=== PATIENT | female | born 2000 | race Caucasian/White ===

== ENCOUNTER 2024-04-29 10:33 | Emergency (ER) | payer OTHER, SELFPAY ==
[2024-04-29 10:35] VITALS: BP 159/101; PULSE 130; RESP 18; TEMP 36.3; O2SAT 99; BMI 21.9
[2024-04-29 11:02] LABS: Basophils # 0.1 K/mm3 (0-0.2); Basophils % 1.9 % (0.1-2.0); Eosinophils # 0.1 K/mm3 (0.0-0.4); Eosinophils % 0.9 % (0.1-12.0); Hematocrit 44.8 % (37.0-47.0); Hemoglobin 14.1 g/dL (12.2-16.2); Lymphocytes % 25.4 % (10-50); Mean Corpuscular HGB Conc 31.5 g/dL (31.8-35.4); Mean Corpuscular Hemoglobin 27.7 pg (27.0-31.2); Mean Corpuscular Volume 87.9 fl (81-99); Mean Platelet Volume 7.8 fl (7.4-10.4); Monocytes # 0.5 K/mm3 (0.1-1.0); Neutrophils % 64.8 % (37.0-80.0); Platelet Count 440 K/mm3 (142-424); Red Cell Distribution Width 14.8 % (11.5-17.5); White Blood Count 7.7 K/mm3 (4.8-10.8)
[2024-04-29 11:03] LABS: Chloride 109 mmol/L (98-107)
[2024-04-29 11:04] LABS: Albumin Level 4.9 g/dl (3.5-5.0); Potassium 3.6 mmoL/L (3.5-5.1); Sodium 140 mmol/L (136-145)
[2024-04-29 11:06] LABS: Blood Urea Nitrogen 6 mg/dl (7-17); Creatinine Clearance Estimated 122 mL/min (50-200); Estimated Glomerular Filt Rate 121 ml/min (>60); GFR (African American) 146 ML/MIN (>60)
[2024-04-29 11:06] LABS: Urine Pregnancy, HCG Qual. Positive (Negative)
[2024-04-29 11:07] LABS: Alanine Aminotransferase 18 U/L (12-78); Albumin/Globulin Ratio 1.5 (1.1-1.8); Alkaline Phosphatase 58 U/L (38-126); Anion Gap 9.6 mEq/L (5-15); Aspartate Amino Transferase 32 U/L (14-36); Bilirubin,Total 0.6 mg/dl (0.2-1.3); Calcium 9.5 mg/dl (8.4-10.2); Carbon Dioxide 25 mmol/L (22.0-30.0); Globulin 3.2 g/dL (1.3-3.2); Glucose 99 mg/dl (74-100); Total Protein,Serum 8.1 g/dl (6.3-8.2)
--- NOTE | 2024-04-29 11:09 | US_ITS ---
PROCEDURE INFORMATION: Exam: US , Transvaginal Exam date and time: 04/29/2024 11:11 AM Age: 24 years old Clinical indication: complicated by abdominal or pelvic pain; Right lower quadrant; First trimester (<14 weeks 0 days); Gestational age or lmp: 03/17/24; ; Additional info: Rlq pain LABS AND CLINICAL REPORTS: Last menstrual period start date: 03/17/2024 Gestational age (Established): 6 w 1 d Estimated due date (Established): 12/22/2024 TECHNIQUE: Imaging protocol: Real-time transvaginal obstetrical ultrasound of the maternal pelvis with image documentation. Transvaginal imaging was used for better evaluation of the fetus, adnexa, and/or cervix. COMPARISON: No relevant prior studies available. FINDINGS: Gestation: No intrauterine gestation. MATERNAL: Uterus: Uterus measures 8.81 cm x 5.84 cm x 3.89 cm. Normal appearance of the uterus. The endometrial echo complex measures up to 0.7 cm. Right ovary/adnexa: Right ovary measures 3.74 cm x 2.28 cm x 1.92 cm. Right ovarian volume is 8.57 mL. A rounded structure is noted along the inferior aspect of the right ovary measuring up to 1.3 cm. Left ovary/adnexa: Left ovary measures 3.81 cm x 2.31 cm x 2.03 cm. Left ovarian volume is 9.35 mL. Probable small collapsed cyst in the left ovary measuring up to 1.7 cm. Intraperitoneal space: Small volume free fluid in the pelvis. IMPRESSION: 1. No gestational sac is identified. 2. A rounded structure is noted along the inferior aspect of the right ovary measuring up to 1.3 cm. It is unclear whether this is arising from the ovary or adjacent to the ovary. This does not have the typical appearance of an ectopic . This also does not have the typical appearance of the appendix, though these entities are not entirely excluded. Recommend attention on follow-up imaging.
[2024-04-29 11:39] LABS: HCG,Quantitative 110 mIU/ml (0-5.42)
[2024-04-29 11:40] VITALS: BP 149/89; PULSE 108; O2SAT 99
[2024-04-29 12:00] VITALS: BP 138/89; PULSE 105; O2SAT 97
--- NOTE | 2024-04-29 12:05 | ED_ITS ---
Discharge Plan Disposition Patient Disposition: Home, Self-Care Condition: Good Referrals Follow up/Referrals: Lashell Carolina DO [Staff Physician] - See instructions Letha Streeter APRN [Primary Care Provider] - See instructions Activity Restrictions/Add. Instructions Additional Instructions/Restrictions: You were evaluated in the ED today. At this time, your hcg level is very low. We do not visualize any on ultrasound, so we recommend close follow up with gynecology for monitoring. I have made an appointment for you with gynecology tomorrow at 11am. Return to the ED for new or worsening symptoms. Clinical Impressions Clinical Impression: Vaginal bleeding during , Lesion of right ovary Stand Alone Forms Stand Alone Forms: Work/School Release Instructions Patient Instructions: DI for Ectopic , DI for Vaginal Bleeding During , DI for Vaginal Bleeding Print Language Print Language: Nicaraguan Discharge ED Provider: Marilee Garg General Adult HPI General Chief complaint: Vaginal Bleeding Stated complaint: 5/6 weeks antepartum, heavy bleeding Time Seen by Provider: 04/29/24 10:44 Mode of Arrival: Ambulatory Source of Information: Patient Limitations: No Limitations Description of Symptoms (Recalled from ER Triage Doc. by RN): c/o spotting t/o the weekend and abdomen cramping, increased red bleeding with lower back pain that started this am. pt 5-6 weeks with 2nd . History of Present Illness HPI narrative: This patient is a 24-year-old female G2, P1 at estimated 5 weeks gestational age presenting to the emergency department for evaluation with concern for vaginal bleeding. She states it initially started out as spotting over the weekend but increased of bright red blood with low back pain and pelvic pain that started this morning. She was having localized right lower quadrant pain at 1 point, but now with mostly pelvic cramping. She has not yet had a confirmatory ultrasound given that it is early. She has had no fevers, urinary symptoms, or other concerns. She notes the bleeding is about the same as a regular period. Related Data Allergies Allergy/AdvReac Type Severity Reaction Status Date / Time No Known Allergies Allergy Verified 04/26/24 16:15 [facility] Disclaimer: The information contained in this section may have been updated after the patient was seen, as this information can be updated by other users. Social History Smoking Status: Never smoker alcohol intake: never current occupational status: employed Travel in the last 8 weeks: None ROS Obtained: Yes All systems reviewed & no additional complaints except as documented Physical Exam General General appearance: alert and in no apparent distress Head Head exam: atraumatic and normocephalic Eye Eye exam: Present normal appearance, PERRL and EOMI ENT ENT exam: Present normal exam, normal oropharynx, mucous membranes moist and normal external ear exam Neck Neck exam: Present normal inspection, full ROM and trachea midline; Absent tenderness Chest Chest inspection: Present normal inspection and symmetric chest wall rise; Absent tenderness Respiratory Respiratory exam: Present normal lung sounds bilaterally; Absent respiratory distress, wheezes, stridor or accessory muscle use Cardiovascular Cardiovascular exam: Present regular rate and normal rhythm Abdominal Exam Abdominal exam: Present soft; Absent distention, tenderness or guarding Extremities Exam Extremities exam: Present normal inspection, full ROM and normal capillary refill; Absent tenderness or edema Back Exam Back exam: Present normal inspection and full ROM; Absent tenderness Neurological Exam Neurological exam: Present alert, oriented X3, CN II-XII intact and normal gait; Absent motor sensory deficit Psychiatric Psychiatric exam: Present normal affect and normal mood Skin Skin exam: Present warm and dry Medical Decision Making Medical Records Medical records reviewed: Yes I reviewed the patient's medical records. Juan Jose Inquiry Pt receiving controlled substance: No Vital Signs: 04/29/24 10:35 04/29/24 11:40 04/29/24 12:00 Temperature 97.4 F L Temperature Source Oral Pulse Rate 108 H 105 H Pulse Rate [Left Radial] 130 H Respiratory Rate 18 Blood Pressure 149/89 H 138/89 Blood Pressure [Right Arm] 159/101 H Blood Pressure Mean 95 98 Blood Pressure Mean [Right Arm] 120 Blood Pressure Source Blood Pressure Source [Right Arm] Automatic Cuff Blood Pressure Position Blood Pressure Position [Right Arm] Sitting 02 Sat by Pulse Oximetry 99 99 97 Oxygen Delivery Method Room Air Room Air Room Air 04/29/24 12:30 04/29/24 13:38 Temperature 97.4 F L Temperature Source Oral Pulse Rate 104 H 104 H Pulse Rate [Left Radial] Respiratory Rate 18 Blood Pressure 129/75 129/75 Blood Pressure [Right Arm] Blood Pressure Mean 88 Blood Pressure Mean [Right Arm] Blood Pressure Source Automatic Cuff Blood Pressure Source [Right Arm] Blood Pressure Position Sitting Blood Pressure Position [Right Arm] 02 Sat by Pulse Oximetry 99 Oxygen Delivery Method Room Air Room Air Lab Data Lab results reviewed: Yes I reviewed the patient's lab results. Lab Results 04/29/24 10:41: WBC 7.7, RBC 5.10, Hgb 14.1, Hct 44.8, MCV 87.9, MCH 27.7, MCHC 31.5 L, RDW 14.8, Plt Count 440 H, MPV 7.8, Neut % (Auto) 64.8, Lymph % (Auto) 25.4, [place] % (Auto) 7.0, Eos % (Auto) 0.9, Baso % (Auto) 1.9, Neut # (Auto) 5.0, Lymph # (Auto) 2.0, [place] # (Auto) 0.5, Eos # (Auto) 0.1, Baso # (Auto) 0.1, Sodium 140, Potassium 3.6, Chloride 109 H, Carbon Dioxide 25, Anion Gap 9.6, BUN 6 L, Creatinine 0.60, Estimated Creat Clear 122, Estimated GFR 121, Est GFR ( Amer) 146, Glucose 99, Calcium 9.5, Total Bilirubin 0.6, AST 32, ALT 18, Alkaline Phosphatase 58, Total Protein 8.1, Albumin 4.9, Globulin 3.2, Albumin/Globulin Ratio 1.5, HCG, Quant 110 H 04/29/24 10:44: Urine Color Yellow, Urine Appearance Clear, Urine pH 6.0, Ur Specific [place] 1.025, Urine Protein Negative, Urine Glucose (UA) Negative, Urine Ketones Negative, Urine Blood 3+ A, Urine Nitrate Negative, Urine Bilirubin Negative, Urine Urobilinogen 0.2, Ur Leukocyte Esterase Negative, Urine RBC 5-10, Urine WBC Occasional, Ur Squamous Epith Cells 3-5, Urine Bacteria Trace, Urine HCG, Qual Positive 04/29/24 10:41 04/29/24 10:41 Orders (Tests/Meds): ORDERS Category Date Time Status Complete Blood Count Auto Diff Stat Lab 04/29/24 10:41 Completed Comprehensive Metabolic Panel Stat Lab 04/29/24 10:41 Completed HCG,Quantitative Stat Lab 04/29/24 10:41 Completed UA [Urinalysis and Microscopic] Stat Lab 04/29/24 10:44 Completed Urine , HCG Qual. Stat Lab 04/29/24 10:44 Completed US OB transvaginal Stat Ultrasound 04/29/24 11:09 Completed Medical Decision Narrative: In summary, this patient is a 24-year-old female presenting to the Emergency Department for evaluation of vaginal bleeding in setting of early . Differential diagnoses considered include but are not limited to threatened , missed , inevitable , ectopic , subchorionic hemorrhage, implantation bleeding. Ruling out the most morbid conditions drove assessment. On exam, the patient is well-appearing with benign abdominal exam. She was hypertensive and tachycardic upon arrival, but she was anxious. Workup included CBC, CMP, quantitative hCG, urinalysis, and type and screen as well as transvaginal ultrasound. I independently interpreted ultrasound prior to the radiologist read and noted no obvious IUP. Please see their read for final interpretation. Labs were obtained that demonstrated hCG of 110. I reviewed patient's medical records from first delivery at [place] and noted her blood type is A positive, indicating RhoGAM is not indicated at this time. She has significant mount of blood in her urine, blood in the vaginal vault with transvaginal ultrasound. Hemoglobin is normal at 14.1 and she has reassuring vital signs with no findings concerning for hemorrhagic shock on exam. Transvaginal ultrasound showed an abnormal nodular lesion of the right ovary but no IUP. They said it was not characteristic of an ectopic . I had an interactive discussion with Dr. Gee with OBGYN who advised she agreed it does not look like ectopic and the patient would benefit from close follow-up tomorrow and gynecology clinic for reassessment, as they can trend hCG is appropriate. Patient agreeable to this. She was given strict return precautions and instructions close follow-up. She was discharged after all questions were answered. Critical Care Critical Care Time Critical Care Time: No
[2024-04-29 12:21] LABS: Microscopic, Urine URINE MICROSCOPIC (MICROSCOPIC)
[2024-04-29 12:26] LABS: Appearance,Urine CLEAR (Clear); Bilirubin,Urine Negative (Negative); Blood, Urine 3+ (Negative); Color,Urine YELLOW (Yellow); Glucose,Urine (UA) Negative (Negative); Ketones,Urine Negative (Negative); Leukocyte Esterase,Urine Negative (Negative); Nitrate,Urine Negative (Negative); Protein,Urine Negative (Negative); Specific Gravity, Urine 1.025 (1.005-1.030); Urobilinogen,Urine 0.2 EU/dl (0.2)
[2024-04-29 12:30] VITALS: BP 129/75; PULSE 104; O2SAT 99
[2024-04-29 12:35] LABS: Bacteria,Urine Trace /lpf; WBC,Urine Occasional #/hpf (0-3)
[2024-04-29 13:38] VITALS: BP 129/75; PULSE 104; RESP 18; TEMP 36.3; O2SAT 99
== END 2024-04-29 13:38 | disposition home or self-care (01) ==
PROVIDERS: Emergency Provider Emergency Medicine; PCP Nurse Practitioner
DX: O20.9 Hemorrhage in early pregnancy, unspecified (principal); N83.9 Noninflammatory disorder of ovary, fallopian tube and broad ligament, unspecified; Z3A.01 Less than 8 weeks gestation of pregnancy
CPT/HCPCS: 76817; 80053; 81001; 81025; 84702; 85025; 99284

== ENCOUNTER 2024-04-30 11:44 | Outpatient (CLI) | payer OTHER, SELFPAY ==
[2024-04-30 13:02] LABS: HCG,Quantitative 133 mIU/ml (0-5.42)
[2024-05-01 08:21] LABS: Progesterone 1.1 ng/mL (.)
== END 2024-04-30 23:59 | disposition home or self-care (01) ==
LOC: LAB 11:45
PROVIDERS: PCP Nurse Practitioner; Visit Provider Obstetrics & Gynecology
DX: Z34.90 Encounter for supervision of normal pregnancy, unspecified, unspecified trimester (principal)
CPT/HCPCS: 36415; 84144; 84702

== ENCOUNTER 2024-05-02 19:08 | Outpatient (CLI) | payer OTHER, SELFPAY ==
[2024-05-02 20:08] LABS: HCG,Quantitative 58 mIU/ml (0-5.42)
== END 2024-05-02 23:59 | disposition home or self-care (01) ==
LOC: LAB.DROPOF 19:11
PROVIDERS: PCP Obstetrics & Gynecology; Visit Provider Obstetrics & Gynecology
DX: O20.9 Hemorrhage in early pregnancy, unspecified (principal)
CPT/HCPCS: 84702

== ENCOUNTER 2024-08-16 10:20 | Emergency (ER) | payer OTHER, SELFPAY ==
[2024-08-16 11:05] VITALS: BP 112/71; PULSE 78; RESP 18; TEMP 36.9; O2SAT 99; BMI 21.5
[2024-08-16 11:19] LABS: UTC Strep Screen (Rapid) Negative (Negative)
--- NOTE | 2024-08-16 11:42 | EXP.UTC ---
Discharge Plan Disposition Patient Disposition: Home, Self-Care Condition: Good Prescriptions Prescriptions: New iyirlzynlwazugb-rfcegeckx-UG [Bromfed DM] 2-30-10 mg/5 mL syrup 10 ml PO Q6H PRN (Reason: cold symptoms) Qty: 200 0RF No Action norelgestromin-ethin.estradiol 150-35 mcg/24 hr patch weekly 1 patch topical MONTHLY Patient Comments: APPLY 1 PATCH EACH WEEK FOR 3 WEEKS, THEN REMOVE FOR 1 WEEK Referrals Follow up/Referrals: Provider,Referral, MD [Primary Care Provider] - See instructions Activity Restrictions/Add. Instructions Additional Instructions/Restrictions: Take medication as prescribed. Increase fluids and rest. If symptoms persist or worsen, return to clinic/PCP. Clinical Impressions Clinical Impression: Upper respiratory tract infection Stand Alone Forms Stand Alone Forms: Work/School Release Instructions Patient Instructions: DI for Viral Upper Respiratory Infection -- Adult Print Language Print Language: Fijian Discharge ED Provider: Ioana Neumann [facility] [place] General Stated complaint: sore throat, cough Mode of Arrival: Ambulatory Source of Information: Patient Limitations: No Limitations Time Seen by Provider: 08/16/24 11:42 Description of Symptoms (Recalled from Triage Doc. 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 She states that she feels as if she has swallowed razor blades. She denies taking anything for her symptoms. Related Data Home Medications ?Medication ?Instructions ?Recorded ?Confirmed norelgestromin 150 mcg-e.estradiol 1 patch topical MONTHLY 08/16/24 08/16/24 35 mcg/24 hr weekly transderm patch Previous Rx's ?Medication ?Instructions ?Recorded ghqyobzojlxsrdc-soxgiftddwhvaxf-BN 10 ml PO Q6H PRN cold symptoms 08/16/24 2 mg-30 mg-10 mg/5 mL oral syrup #200 mL (Bromfed DM) Allergies Allergy/AdvReac Type Severity Reaction Status Date / Time sulfamethoxazole (From Allergy Intermediate Hives Verified 05/02/24 08:30 Bactrim) trimethoprim (From Bactrim) Allergy Intermediate Hives Verified 05/02/24 08:30 Worker's Comp Is this a Worker's Comp case?: No [facility] Disclaimer: The information contained in this section may have been updated after the patient was seen, as this information can be updated by other users. Medical History No significant past medical history Surgical History No significant past surgical history Social History Smoking Status: Never smoker alcohol intake: never current occupational status: employed Travel in the last 8 weeks: None Have you lived/traveled outside [place] in past 30 days?: No Contact w/someone who lives/traveled outside US past 30 days?: No Exposure to someone with infectious disease in past 14 days?: No Do you have a fever (greater than 100.4 F or 38 C)?: No Have you tested positive for COVID-19: No Exposed to someone with COVID-19 in past 14 days?: No Do you have a sore throat?: Yes Do you have a cough?: Yes Do you have any weakness?: No Do you have any diarrhea?: No Are you experiencing any unusual bleeding?: No Do you have any muscle aches/pain?: No Do you have any abdominal pain?: No Are you experiencing loss of taste or smell?: No ROS Obtained: Yes All systems reviewed & no additional complaints except as documented Constitutional Constitutional: Reports system reviewed and no additional complaints, except as documented, Reports headache(s) and Reports malaise Eyes Eyes: Reports system reviewed and no additional complaints, except as documented ENT Ears, Nose, Mouth, and Throat: Reports system reviewed and no additional complaints, except as documented, Reports headache(s), Reports nasal congestion, Reports nasal discharge, Reports odynophagia and Reports sore throat Cardiovascular Cardiovascular: Reports system reviewed and no additional complaints, except as documented Respiratory Respiratory: Reports system reviewed and no additional complaints, except as documented and Reports non-productive cough Gastrointestinal Gastrointestingal: Reports system reviewed and no additional complaints, except as documented and odynophagia Genitourinary Female Genitourinary: Reports system reviewed and no additional complaints, except as documented Musculoskeletal Musculoskeletal: Reports system reviewed and no additional complaints, except as documented Integumentary/Breasts Skin/Breast: Reports system reviewed and no additional complaints, except as documented Neurologic Neurologic: Reports system reviewed and no additional complaints, except as documented and Reports headache(s) Endocrine Endocrine: Reports system reviewed and no additional complaints, except as documented Hematologic/Lymphatic Henatologic/Lymphatic: Reports system reviewed and no additional complaints, except as documented Allergic/Immunologic Allergic/Immunologic: Reports system reviewed and no additional complaints, except as documented Physical Exam General General appearance: alert and in no apparent distress Head Head exam: atraumatic and normocephalic Eye Eye exam: Present normal appearance Expanded ENT Exam External ear exam: Present normal external inspection Nose exam: Absent sinus tenderness Nasal speculum exam: Bilateral: normal (clear drainage) Mouth exam: Present normal external inspection Teeth exam: Present normal inspection Throat exam: Present tonsillar erythema Neck Neck exam: Present normal inspection; Absent lymphadenopathy Chest Chest inspection: Present normal inspection and symmetric chest wall rise Respiratory Respiratory exam: Present normal lung sounds bilaterally Cardiovascular Cardiovascular exam: Present regular rate, normal rhythm and normal heart sounds Abdominal Exam Abdominal exam: Present soft and normal bowel sounds Extremities Exam Extremities exam: Present normal inspection Back Exam Back exam: Present normal inspection Neurological Exam Neurological exam: Present alert and oriented X3 Psychiatric Psychiatric exam: Present normal affect and normal mood Skin Skin exam: Present warm, dry and intact Lymphatic Lymphatic Findings: no adenopathy Medical Decision Making Medical Records Screening: Per USPSTF and CDC recommendations, given the prevalence of disease in our region, it is our hospital?s policy to screen for HIV and viral Hepatitis for all patients aged 18 and over and those with ongoing risk factors. Juan Jose Inquiry Pt receiving controlled substance: No Juan Jose was queried for this patient: No Vital Signs: 08/16/24 11:05 Temperature 98.5 F Temperature Source Oral Pulse Rate [Left Brachial] 78 Respiratory Rate 18 Blood Pressure [Left Arm] 112/71 Blood Pressure Mean [Left Arm] 84 Blood Pressure Source [Left Arm] Automatic Cuff Blood Pressure Position [Left Arm] Sitting 02 Sat by Pulse Oximetry 99 Oxygen Delivery Method Room Air Lab Data Lab results reviewed: Yes I reviewed the patient's lab results. Lab Results 08/16/24 11:05: Strep Scn Rapid Clinic Negative Orders (Tests/Meds): ORDERS Category Date Time Status Strep Screen Confirmation Stat Micro 08/16/24 11:05 Received
[2024-08-16 11:53] VITALS: BP 112/71; PULSE 78; RESP 18; TEMP 36.9; O2SAT 99
[2024-08-16 12:00] LABS: Coronavirus 19, PCR Not Detected (NotDetected); Influenza B, PCR Not Detected (NotDetected)
[2024-08-16 12:01] LABS: Human Rhinovirus Not Detected (NotDetected); Influenza A, PCR Not Detected (NotDetected)
[2024-08-16 21:00] LABS: Respiratory Syncytial Virus Detected (NotDetected)
== END 2024-08-16 11:56 | disposition home or self-care (01) ==
PROVIDERS: Emergency Provider Nurse Practitioner Family
DX: J06.9 Acute upper respiratory infection, unspecified (principal)
CPT/HCPCS: 87631; 87880; 99213; G0381